=== PATIENT | male | born 1975 | race Hispanic/Latino ===

== ENCOUNTER 2022-04-05 22:44 | Inpatient (IN) | payer SELFPAY ==
[2022-04-05 23:31] LABS: Absolute Lymphocytes (CBC) 0.5 K/uL (0.7-4.9); Hematocrit 29.2 % (39.6-49.0); MCV 88.5 fL (80-100)
[2022-04-05] MEDS ORDERED: NA CHLORIDE 0.9% 1,000 ML ONE ×2 (23:31→23:52)
[2022-04-05] MEDS ORDERED: NA CHLORIDE 0.9% 250 ML ONE (23:31)
[2022-04-05] MEDS ORDERED: VANCOMYCIN 1 GM/VIAL ONE (23:31)
[2022-04-05 23:35] LABS: Protime INR 1.39
[2022-04-05 23:42] LABS: Albumin 2.2 g/dL (3.4-5.0); Bilirubin Total 4.7 mg/dL (0.2-1.0); Potassium 3.6 mmol/L (3.5-5.1); Protein, Total 7.9 g/dL (6.4-8.2)
[2022-04-05] MEDS ORDERED: THIAMINE 200 MG/2 ML INJ ONE (23:52)
[2022-04-05] MEDS ORDERED: MULTIVITAMINS 10 ML VIAL (INJ) IV ONE (23:52)
[2022-04-05] MEDS ORDERED: FOLIC ACID 5 MG/ML VIAL ONE (23:54)
[2022-04-06] MEDS ORDERED: IBUPROFEN 200 MG TAB PO ONE (00:06)
[2022-04-06] MEDS ORDERED: CEFEPIME 2 GM VIAL ONE (00:06)
[2022-04-06] MEDS ORDERED: IBUPROFEN 400 MG TAB ONE (00:06)
[2022-04-06] MEDS ORDERED: NA CHLORIDE 0.9% 100 ML ONE (00:06)
[2022-04-06 00:21] LABS: Blood Morphology Comment NOTED (NOT SEEN); Platelet Estimate DECR; Polychromasia SLIGHT
--- NOTE | 2022-04-06 00:23 | ER ---
Nurse's Notes [facility] Name: Conrad Blackwood Age: 46 yrs Sex: Male : 1975 Arrival Date: 04/05/2022 Time: 22:47 Bed 7 Private MD: Diagnosis: Severe sepsis without septic shock;Cellulitis of right lower limb;Altered mental status, unspecified Presentation: 04/05 23:06 Chief complaint: Brother states that he has been saying that he was "seeing demons" and kd3 that he had a fever last night of 100.7 and that he has been very weak, not eating well and acting very sick. The patient reports last drink about 4 weeks ago but the brother report patient drinking daily and is unsure of when his last drink was. The brother states that they decided to bring him to the hospital tonight because of some swelling in the right lower extremity that wasn't noticed by the family members or reported by the patient. Coronavirus screen: Vaccine status: Patient reports being unvaccinated. Ebola Screen: No symptoms or risks identified at this time. Initial Sepsis Screen: Does the patient meet any 2 criteria? RR > 20 per min. Temp <36.0*C (96.8*F)) or > 38.3*C (100.9*F). Does the patient have a suspected source of infection? Yes: Skin breakdown/wound If YES to both, name of provider notified: Bo Cisneros MD. Risk Assessment: Do you want to hurt yourself or someone else? Patient reports no desire to harm self or others. Onset of symptoms was April 05, 2022. 23:06 Method Of Arrival: Wheelchair kd3 23:06 Acuity: ALESSANDRO 3 kd3 Triage Assessment: 23:14 General: Appears ill, Behavior is cooperative. Pain: Denies pain. kd3 23:14 Pain: Complains of pain in right leg. Neuro: Level of Consciousness is awake, alert, kd3 obeys commands, confused, Oriented to person, situation. Respiratory: Airway is patent Trachea midline Respiratory effort is even, unlabored, Respiratory pattern is regular, symmetrical. Historical: - Allergies: 23:14 No Known Allergies; kd3 - Home Meds: 23:14 None [Active]; kd3 - Immunization history:: Adult Immunizations unknown, Client reports having NOT received the Covid vaccine. - Social history:: Smoking status: unknown. - Family history:: not pertinent. - Hospitalizations: : No recent hospitalization is reported. Screenin:16 Abuse screen: Denies threats or abuse. Denies injuries from another. Nutritional kd3 screening: No deficits noted. Tuberculosis screening: No symptoms or risk factors identified. Fall Risk IV access (20 points). Gait- Weak (10 pts.). Mental Status- Overestimates/Forgets Limitations (15 pts.). Assessment: 23:19 General: See triage . kd3 Vital Signs: 23:06 BP 120 / 73; Pulse 91; Resp 18; Temp 100.6; Pulse Ox 100% ; Pain 0/10; kd3 23:31 Weight 67.59 kg; Height 5 ft. 7 in. (170.18 cm); kd3 04/06 00:25 Pulse 82; kd3 01:29 Temp 98.4(O); kd3 01:30 BP 108 / 66; Pulse 80; Resp 19; Pulse Ox 100% on R/A; kd3 02:35 Pulse 83; Resp 19; Pulse Ox 100% on R/A; kd3 04/05 23:31 Body Mass Index 23.34 (67.59 kg, 170.18 cm) kd3 ED Course: 04/05 22:47 Patient arrived in ED. ja2 22:49 Nancy Mora, RN is Primary Nurse. kd3 22:54 Bo Cisneros MD is Attending Physician. rn 23:14 Triage completed. kd3 23:14 Arm band placed on right wrist. kd3 23:16 Patient has correct armband on for positive identification. kd3 23:16 No provider procedures requiring assistance completed. kd3 23:50 Extremity Venous Uni Ltd US In Process Unspecified. EDMS 23:52 XRAY Chest (1 view) In Process Unspecified. EDMS 04/06 00:21 Frandy Abreu MD is Hospitalizing Provider. rn 02:33 Patient admitted, IV remains in place. kd3 02:33 Inserted saline lock: 18 gauge in right antecubital area, using aseptic technique. kd3 Blood collected. Administered Medications: 04/05 23:30 Drug: vancoMYCIN 1 grams Route: IVPB; Infused Over: 2 hrs; Site: right antecubital; kd3 04/06 01:31 Follow up: Response: No adverse reaction; IV Status: Completed infusion kd3 04/05 23:30 Drug: NS 0.9% 1000 ml Route: IV; Rate: 1000 ml; Site: right antecubital; kd3 04/06 02:34 Follow up: IV Status: Infusion continued kd3 04/05 23:55 Drug: Banana Bag - (NS 0.9% 1000 ml, foLIC Acid 1 mg, Thiamine 100 mg, Multivitamin 1 kd3 amp) Route: IV; Rate: calculated rate; Site: right antecubital; 04/06 02:34 Follow up: IV Status: Infusion continued kd3 00:04 Drug: Cefepime 2 grams Route: IVPB; Rate: 200 ml/hr; Infused Over: 30 mins; Site: right kd3 antecubital; 00:23 Follow up: Response: No adverse reaction; IV Status: Completed infusion kd3 00:04 Drug: Motrin (ibuprofen) 600 mg Route: PO; kd3 02:34 Follow up: Response: Temperature is decreased kd3 Medication: 04/05 23:17 VIS not applicable for this client. kd3 Outcome: 04/06 00:22 Decision to Hospitalize by Provider. rn 02:33 Admitted to Med/surg room 404. kd3 02:33 Condition: stable 02:33 Condition: stable 02:33 Discharge instructions given to patient, family, Instructed on the need for admit, Demonstrated understanding of instructions, follow-up care. 02:35 Patient left the ED. kd3 Signatures: Dispatcher [employer] EDMS Bo Cisneros MD MD rn Alexander, Jessica ja2 Doucette, Kyli, RN RN kd3 Corrections: (The following items were deleted from the chart) 00:25 04/05 23:21 Pulse 26bpm; kd3 kd3
--- NOTE | 2022-04-06 00:23 | EDPHYS ---
Physician Documentation [facility] Name: Conrad Blackwood Age: 46 yrs Sex: Male : 1975 Arrival Date: 04/05/2022 Time: 22:47 Bed 7 Private MD: ED Physician Bo Cisneros HPI: 04/05 23:16 This 46 yrs old Male presents to ER via Wheelchair with complaints of AMS, Leg rn Swelling. 23:16 The patient presents with pain, swelling. The complaints affect the right leg. rn 23:16 Onset: The symptoms/episode began/occurred 1 week(s) ago. Modifying factors: The rn symptoms are alleviated by nothing. the symptoms are aggravated by nothing. Associated signs and symptoms: Pertinent positives: fever, rash, swelling, warmth, Pertinent negatives weakness. Severity of symptoms: At their worst the symptoms were moderate, in the emergency department the symptoms are unchanged. The patient has experienced a previous episode. The patient has not recently seen a physician. Pt reports RLE pain and swelling, fever, and "seeing things". Happening for 1 week. States has happened once before. Family reports daily drinker, patient states no ETOH for 1 month. . Historical: - Allergies: 23:14 No Known Allergies; kd3 - Home Meds: 23:14 None [Active]; kd3 - Immunization history:: Adult Immunizations unknown, Client reports having NOT received the Covid vaccine. - Social history:: Smoking status: unknown. - Family history:: not pertinent. - Hospitalizations: : No recent hospitalization is reported. 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 Exam: 23:19 Constitutional: Disheveled patient, cooperative, seems confused. Head/Face: rn Normocephalic, atraumatic. Eyes: + mild scleral icterus. ENT: very dry MM Cardiovascular: Regular rate and rhythm. No pulse deficits. Respiratory: No increased work of breathing, no retractions or nasal flaring. Abdomen/GI: Soft, non-tender Skin: Warm, dry, + RLE with swelling and weeping from right distal thigh down to foot. + palpable pulse Right foot. No cyanosis. MS/ Extremity: Pulses equal, no cyanosis. Neuro: Awake and alert, GCS 15, oriented only to person, not place or time. Vital Signs: 23:06 BP 120 / 73; Pulse 91; Resp 18; Temp 100.6; Pulse Ox 100% ; Pain 0/10; kd3 23:31 Weight 67.59 kg; Height 5 ft. 7 in. (170.18 cm); kd3 04/06 00:25 Pulse 82; kd3 01:29 Temp 98.4(O); kd3 01:30 BP 108 / 66; Pulse 80; Resp 19; Pulse Ox 100% on R/A; kd3 02:35 Pulse 83; Resp 19; Pulse Ox 100% on R/A; kd3 04/05 23:31 Body Mass Index 23.34 (67.59 kg, 170.18 cm) kd3 MDM: 04/05 22:54 Patient medically screened. rn 04/06 00:18 Differential diagnosis: cellulitis, DVT, sepsis, sever sepsis, ETOH withdrawal. Data rn reviewed: vital signs, nurses notes, lab test result(s), radiologic studies, ultrasound, and as a result, I will admit patient. Counseling: I had a detailed discussion with the patient and/or guardian regarding: the historical points, exam findings, and any diagnostic results supporting the discharge/admit diagnosis, lab results, radiology results, the need for further work-up and treatment in the hospital. Response to treatment: the patient's symptoms have mildly improved after treatment, and as a result, I will admit patient. Admission orders: after a detailed discussion of the patient's condition and case, the admit orders are written by me. ED course: Pt slowly improving. Meets criteria for severe sepsis. (A) source is RLE cellulitis. (B) SIRS criteria HR> 90, and Acute AMS. (C) organ dysfunction is elevated bilirubin. Lactate 1.9, no need for repeat. No evidence of shock. Admitted to hospitalist service. Given absence of shock and normal lactic acid, does not require sepsis bolus. Sepsis reevaluation complete. . 04/05 23:01 Order name: Blood Culture Adult (2) rn 04/05 23:01 Order name: CBC with Diff; Complete Time: 00:23 rn 08 23:01 Order name: CMP; Complete Time: 23:44 rn 04/05 23:01 Order name: Lactate; Complete Time: 23:44 rn 04/05 23:01 Order name: Protime (+inr); Complete Time: 23:44 rn 04/05 23:01 Order name: Ptt, Activated; Complete Time: 23:44 rn 04/05 23:01 Order name: Urine Culture rn 04/05 23:01 Order name: Urine Microscopic Only rn 04/05 23:01 Order name: Extremity Venous Uni Ltd US rn 04/05 23:01 Order name: SARS-COV-2 RT PCR (Document "Date of Onset" if Symptomatic) rn 04/05 23:02 Order name: AMMONIA; Complete Time: 00:07 rn 04/05 23:17 Order name: Glucose, Ancillary Testing; Complete Time: 23:34 EDMS 08 23:19 Order name: ETOH Level; Complete Time: 00:07 rn 04/05 23:40 Order name: Manual Differential; Complete Time: 00:23 EDMS 04/05 23:01 Order name: Accucheck; Complete Time: 23:13 rn 08 23:01 Order name: Cardiac monitoring; Complete Time: 23:13 rn 04/05 23:01 Order name: EKG - Nurse/Tech; Complete Time: 23:13 rn 04/05 23:01 Order name: IV Saline Lock - Large Bore; Complete Time: 23:13 rn 04/05 23:01 Order name: Labs collected and sent; Complete Time: 23:13 rn 04/05 23:01 Order name: O2 Per Protocol; Complete Time: 23:14 rn 04/05 23:01 Order name: O2 Sat Monitoring; Complete Time: 23:14 rn 04/05 23:38 Order name: XRAY Chest (1 view) rn Administered Medications: 04/05 23:30 Drug: vancoMYCIN 1 grams Route: IVPB; Infused Over: 2 hrs; Site: right antecubital; kd3 04/06 01:31 Follow up: Response: No adverse reaction; IV Status: Completed infusion kd3 04/05 23:30 Drug: NS 0.9% 1000 ml Route: IV; Rate: 1000 ml; Site: right antecubital; kd3 04/06 02:34 Follow up: IV Status: Infusion continued kd3 04/05 23:55 Drug: Banana Bag - (NS 0.9% 1000 ml, foLIC Acid 1 mg, Thiamine 100 mg, Multivitamin 1 kd3 amp) Route: IV; Rate: calculated rate; Site: right antecubital; 04/06 02:34 Follow up: IV Status: Infusion continued kd3 00:04 Drug: Cefepime 2 grams Route: IVPB; Rate: 200 ml/hr; Infused Over: 30 mins; Site: right kd3 antecubital; 00:23 Follow up: Response: No adverse reaction; IV Status: Completed infusion kd3 00:04 Drug: Motrin (ibuprofen) 600 mg Route: PO; kd3 02:34 Follow up: Response: Temperature is decreased kd3 Disposition Summary: 04/06/22 00:22 Hospitalization Ordered Hospitalization Status: Inpatient Admission rn Provider: Frandy Abreu rn Location: Telemetry/MedSurg (Inpatient) rn Condition: Stable rn Problem: new rn Symptoms: have improved rn Bed/Room Type: Standard rn Room Assignment: 405(04/06/22 01:20) cg Diagnosis - Severe sepsis without septic shock rn - Cellulitis of right lower limb rn - Altered mental status, unspecified rn Forms: - Medication Reconciliation Form rn - SBAR form rn Signatures: Dispatcher [employer] EDMS Bo Cisneros MD MD rn Garcia, Cindy, RN RN cg Doucette, Kyli, RN RN kd3 Verona Hernandez PA PA sb3 Corrections: (The following items were deleted from the chart) 00:51 00:18 ED course: Pt slowly improving. Meets criteria for severe sepsis. (A) source is rn RLE cellulitis. (B) SIRS criteria HR> 90, and Acute AMS. (C) organ dysfunction is elevated bilirubin. Lactate 1.9, no need for repeat. No evidence of shock. Admitted to hospitalist service. . rn 01:20 00:22 rn cg
--- NOTE | 2022-04-06 01:29 | P.HP ---
Certification for Inpatient Patient admitted to: Inpatient With expected LOS: >2 Midnights Patient will require the following post-hospital care: None Practitioner: I am a practitioner with admitting privileges, knowledge of patient current condition, hospital course, and medical plan of care. Services: Services provided to patient in accordance with Admission requirements found in Title 42 Section 412.3 of the Code of Federal Regulations Patient History Date of Service: 04/06/22 Reason for admission: Alcohol Withdrawal, Cellulitus, Sepsis History of Present Illness: Patient is a 46 y/o male who presented to the ED with complaints of RLE pain/swelling and hallucinations. Patient is accompanied by his brother and sister who report that he is an alcoholic. They believe his last drink was about 2 days ago. They state they were helping him change today when they noticed his right leg was extremely red, swollen, and leaking fluid. They also report he is experiencing visual and audible hallucinations along with paranoia. Patient states that his legs have been swollen before, but they resolve on their own. He has not had any medical care in quite a few years now. Labs are significant for hgb 9.9, platelets 49, PT 15.4, INR 1.39, Na 126, Cl 93, tbili 5.7, alk phos 129, albumin 2.2. Basline labs are unknown. Scleral icterus and mild jaundice n oted on exam. Patient is lethargic but responds appropriately to questions. Venous doppler US negative for DVT. He was given vanc, cefepime, and banana bag in the ED. Brother states that patient drinks beer daily, but is not sure how much. They also do not think he is eating adequately. States patient does not have any chronic medical problems. He is admitted for further evaluation and treatment. Home medications list reviewed: Yes (None) - Past Medical/Surgical History Diabetic: No -: Alcoholism Past Surgical History: Patient denies surgical history Psychosocial/ Personal History: Patient lives at home with a roommate. He has a brother and sister who help him. - Family History Father -: Hypertension - Social History Smoking Status: Never smoker Alcohol use: Yes CD- Drugs: No Caffeine use: Yes Place of Residence: Home Review of Systems General: Weakness Musculoskeletal: Other (R leg swelling, redness, pain) Physical Examination - Physical Exam General: Alert, In no apparent distress, Other (Sleepy but arousable) HEENT: Atraumatic, PERRLA, EOMI, Scleral icterus Neck: Supple, 2+ carotid pulse no bruit, No LAD, Without JVD or thyroid abnormality Respiratory: Clear to auscultation bilaterally, Normal air movement Cardiovascular: Regular rate/rhythm, Normal S1 S2 Gastrointestinal: Normal bowel sounds, Soft and benign, Non-distended, No tenderness Integumentary: Tenderness/swelling, Erythema, Warmth, Other (Right knee and below- erythematous, edematous, weeping, warm. Neurovascularly intact.) Neurological: Normal strength at 5/5 x4 extr, Sensation intact, Abnormal affect - Studies Laboratory Data (last 24 hrs) 04/05/22 23:00: PT 15.4 H, INR 1.39, APTT 26.0 04/05/22 23:00: Sodium 126 L, Potassium 3.6, BUN 21 H, Creatinine 1.00, Glucose 111 H, Total Bilirubin 4.7 H, AST 177 H, ALT 69, Alkaline Phosphatase 129 H 04/05/22 23:00: WBC 7.8, Hgb 9.9 L, Hct 29.2 L, Plt Count 41 L* Assessment and Plan - Problems (Diagnosis) (1) Alcohol withdrawal Current Visit: Yes Status: Acute Qualifiers: Complication of substance-induced condition: with perceptual disturbance Qualified Code(s): F10.932 - Alcohol use, unspecified with withdrawal with perceptual disturbance (2) Acute hepatic failure Current Visit: Yes Status: Acute Qualifiers: Hepatic coma status: without hepatic coma Qualified Code(s): K72.00 - Acute and subacute hepatic failure without coma (3) Cellulitis of right lower extremity Current Visit: Yes Status: Acute (4) Sepsis Current Visit: Yes Status: Acute Qualifiers: Sepsis type: sepsis due to unspecified organism Sepsis acute organ dysfunction status: with acute organ dysfunction Severe sepsis acute organ dysfunction type: acute liver failure Hepatic coma status: without hepatic coma Severe sepsis shock status: without septic shock Qualified Code(s): A41.9 - Sepsis, unspecified organism; R65.20 - Severe sepsis without septic shoc k; K72.00 - Acute and subacute hepatic failure without coma (5) Hyponatremia Current Visit: Yes Status: Acute (6) Thrombocytopenia Current Visit: Yes Status: Acute (7) Anemia Current Visit: Yes Status: Acute Qualifiers: Anemia type: unspecified type Qualified Code(s): D64.9 - Anemia, unspecified (8) Hypoalbuminemia due to protein-calorie malnutrition Current Visit: Yes Status: Acute - Plan Alcohol Withdrawal: DT protocol in place. Per family, last drink was about 48 hours ago but unsure. Patient states his last drink was 4 weeks ago. He is lethargic and experiencing paranoia along with visual/audible hallucinations. Precautions in place. Folic acid, thiamine, MV daily. Cellulitus RLE/Severe Sepsis: Family reports that patient did fall a few days ago and could have caused initial injury to leg, but are unsure. It seems that they aren't telling the whole story. Continue vancomycin and cefepime. Blood cultures obtained. VSS. No white count. Bandemia present. Lactic acid WNL. Liver failure is likely chronic, but we have no baseline to compare to. Hepatic Failure: AST and alk phos elevated. Tbili 4.7. Scleral icterus and mild jaundice present. Secondary to chronic alcohol abuse. CT chest/abd/pelvis and hepatic function panel ordered to investigate further. Thrombocytopenia/Anemia: Iron studies, folate, B12 ordered. Likely secondary to alcohol abuse. Monitor CBC daily. Hyponatremia: Family states patient drinks beer daily, cannot quantify. Hyponatremia likely due to beer potomania. Continue NS and monitor CMP. SCDs for VTE ppx Full Code Discharge Plan: Home Plan to discharge in: Greater than 2 days - Advance Directives Does patient have a Living Will: No Does patient have a Durable POA for Healthcare: No - Code Status/Comfort Care Code Status Assessed: Yes (Full) Critical Care: No Time Spent Managing Pts Care (In Minutes): 50
[2022-04-06] MEDS ORDERED: FLUMAZENIL 0.1 MG/ML (5 mL VIAL) IV PRN (02:46)
[2022-04-06] MEDS ORDERED: VANCOMYCIN 1 GM in NA CHLORIDE 0.9% 250 ML IVPB SCH (02:46)
[2022-04-06] MEDS: NA CHLORIDE 0.9% 1,000 ML IV SCH ×3 (02:46→21:46)
[2022-04-06] MEDS ORDERED: LORAZEPAM 1 MG TABLET PO PRN (02:46)
[2022-04-06] MEDS ORDERED: ONDANSETRON 4 MG/2 ML VIAL IV PRN (02:46)
[2022-04-06] MEDS: LORAZEPAM 1 MG TABLET PO SCH ×2 (03:09→06:32)
[2022-04-06 03:31] VITALS: BMI 27.0
[2022-04-06] MEDS ORDERED: VANCOMYCIN 1 GM/VIAL ONE (04:41)
[2022-04-06] MEDS ORDERED: NA CHLORIDE 0.9% 250 ML ONE (04:41)
[2022-04-06] MEDS ORDERED: VANCOMYCIN 0.75 GM in NA CHLORIDE 0.9% 150 ML IVPB ONE (05:00)
[2022-04-06 07:10] LABS: ALT/SGPT 50 U/L (12-78); AST/SGOT 126 U/L (15-37); Albumin 1.6 g/dL (3.4-5.0); Alkaline Phosphatase 95 U/L (45-117); Bilirubin Direct 2.8 mg/dL (0-0.2); Bilirubin Total 3.7 mg/dL (0.2-1.0); Folic Acid, (Folate) > 20.0 ng/mL (3.1-17.5); Magnesium 2.1 mg/dL (1.8-2.4); Phosphorus 2.2 mg/dL (2.5-4.9); Protein, Total 5.9 g/dL (6.4-8.2); Transferrin 129 mg/dL (200-360)
--- NOTE | 2022-04-06 07:53 | EKG ---
Test Date: 2022-04-05 Test Time: 23:10:42 Unit Secy: THANIA MEASUREMENT RESULTS: Intervals: Rate: 91 NH: 146 QRSD: 92 QT: 398 QTc: 489 [place]: P: 65 NH: 146 QRS: 43 T: 29 INTERPRETIVE STATEMENTS: Normal sinus rhythm Prolonged QT Abnormal ECG No previous ECG available for comparison Electronically Signed On 04-06-22 07:52:24 CDT by Sergio Alcantar
[2022-04-06] MEDS ORDERED: LORAZEPAM 1 MG TABLET PO SCH (08:00)
[2022-04-06] MEDS ORDERED: ALBUMIN HUMAN 25% 100 ML IV ONE (08:59)
[2022-04-06] MEDS: MULTIVITAMIN TAB PO SCH (09:00)
[2022-04-06] MEDS: THIAMINE HCL 100 MG TABLET PO SCH (09:00)
[2022-04-06] MEDS ORDERED: CEFEPIME 1 GM in NA CHLORIDE 0.9% 100 ML IV SCH (09:00)
[2022-04-06] MEDS: FOLIC ACID 1 MG TABLET PO SCH (09:00)
[2022-04-06] MEDS ORDERED: NA CHLORIDE 0.9% 250 ML IV ONE (09:02)
[2022-04-06] MEDS: chlordiazePOXIDE HCl 5 MG CAP PO SCH ×3 (09:10→21:06)
[2022-04-06] MEDS: CEFEPIME 2 GM in NA CHLORIDE 0.9% 100 ML IV SCH ×2 (09:34→21:07)
[2022-04-06] MEDS ORDERED: chlordiazePOXIDE HCl 25 MG CAP PO ONE (10:30)
[2022-04-06] MEDS: VANCOMYCIN 1.25 GM in NA CHLORIDE 0.9% 250 ML IVPB SCH (11:46)
--- NOTE | 2022-04-06 12:28 | RAD REPORT ---
EXAM DESCRIPTION: CT - Chest Abdomen Pelvis W Cont - 04/06/2022 5:24 am CLINICAL HISTORY: AMS, liver failure TECHNIQUE: Axial computed tomography images of the chest, abdomen and pelvis with intravenous contra st. Sagittal and coronal reformatted images were created and reviewed. This CT exam was performed using one or more of the following dose reduction techniques: automated exposure control, adjustme nt of the mA and/or kV according to patient size, and/or use of iterative reconstruction technique. COMPARISON: No relevant prior studies available. FINDINGS: CHEST: Lungs: Minimal bibasilar subsegmental atelectasis/pleural parenchymal scar. Pleural space: Unremarkable. No significant effusion. No pneumothorax. Heart: No cardiomegaly. Coronary artery calcification. No significant pericardial effusion. ABDOMEN: Liver: Diffuse surface contour nodularity of the liver. Gallbladder and bile ducts: Unremarkable. No calcified stones. No ductal dilation. Pancreas: Unremarkable. No ductal dilation. No mass. Spleen: The spleen is mildly enlarged measuring 15.8 cm in craniocaudal dimension. Adrenals: Unremarkable. No mass. Kidneys and ureters: Unremarkable. No hydronephrosis. No solid mass. Stomach and bowel: Unremarkable. No obstruction. No mucosal thickening. PELVIS: Appendix: Normal caliber appendix. No findings to suggest acute appendicitis. Bladder: Unremarkable. No mass. Reproductive: Unremarkable as visualized. CHEST, ABDOMEN and PELVIS: Intraperitoneal space: Trace ascites. No free air. Bones/joints: Multilevel spondylosis. No acute fracture. No dislocation. Soft tissues: Bilateral gynecomastia. Small to moderate periumbilical hernia containing simple fl uid. Small fat-containing right inguinal hernia. Moderate subcutaneous soft tissue edema at the l evel of the proximal right thigh with extension deep to the superficial fascia. Vasculature: Minimal atherosclerotic disease. Paraesophageal varices. Upper abdominal varices. The main portal, splenic and superior mesenteric veins are patent. No aortic aneurysm. Lymph nodes: Mildly enlarged right inguinal lymph nodes with normal fatty annie measuring up to 16 m m in short axis. IMPRESSION: 1. No acute findings in the chest. 2. Findings compatible with hepatic cirrhosis and sequela of portal hypertension. The main portal, splenic and superior mesenteric veins are patent. 3. Right thigh superficial soft tissue edema which can be seen in the setting of superficial soft t issue infection, venous stasis and lymphedema. 4. Other findings as above. Electronically signed by: Laura Harrison MD 04/06/2022 3:10 AM CDT Due to temporary technical issues with the PACS/Fluency reporting system, reports are being signed by the in house radiologists without review as a courtesy to insure prompt reporting. The interpreting radiologist is fully responsible for the content of the report.
--- NOTE | 2022-04-06 12:32 | RAD REPORT ---
EXAM DESCRIPTION: RAD - Chest Single View - 04/05/2022 11:50 pm CLINICAL HISTORY: The patient is 46 years old and is Male; FEVER TECHNIQUE: Frontal view of the chest. COMPARISON: No relevant prior studies available. FINDINGS: Lungs: Unremarkable. No consolidation. Pleural space: Unremarkable. No pneumothorax. Heart: Unremarkable. Mediastinum: Unremarkable. Bones/joints: Unremarkable. IMPRESSION: No acute findings in the chest. Electronically signed by: Geovanny Jaquez MD 04/06/2022 12:11 AM CDT Due to temporary technical issues with the PACS/Fluency reporting system, reports are being signed by the in house radiologists without review as a courtesy to insure prompt reporting. The interpreting radiologist is fully responsible for the content of the report.
--- NOTE | 2022-04-06 12:36 | RAD REPORT ---
EXAM DESCRIPTION: US - Extremity Venous Uni Ltd - 04/06/2022 12:24 am CLINICAL HISTORY: The patient is 46 years old and is Male; Pain Extremity Venous Uni Ltd TECHNIQUE: Real-time duplex ultrasound scan of the right lower extremity veins integrating B-mode tw o-dimensional vascular structure, Doppler spectral analysis, color flow Doppler imaging and compressi on. COMPARISON: No relevant prior studies available. FINDINGS: Deep veins: Unremarkable. No DVT in the visualized common femoral, femoral, or poplite al veins. The veins demonstrate normal color flow, are normally compressible where visualized, with normal phasic flow and/or augmentation response. Soft tissues: Soft tissue edema. IMPRESSION: No evidence of DVT in the right lower extremity veins. Electronically signed by: Geovanny Jaquez MD 04/06/2022 12:15 AM CDT Due to temporary technical issues with the PACS/Fluency reporting system, reports are being signed by the in house radiologists without review as a courtesy to insure prompt reporting. The interpreting radiologist is fully responsible for the content of the report.
[2022-04-06] MEDS ORDERED: VANCOMYCIN 1.25 GM in NA CHLORIDE 0.9% 250 ML IVPB SCH (17:00)
[2022-04-07] MEDS: VANCOMYCIN 1.25 GM in NA CHLORIDE 0.9% 250 ML IVPB SCH ×2 (00:59→12:00)
--- NOTE | 2022-04-07 01:48 | P.PN ---
Subjective Date of Service: 04/07/22 Subjective: Improving blood pressure low; and started on IV albumin. Review of Systems is unable to be obtained Physical Examination - Vital Signs Temperature: 98.1 F Blood Pressure: 119/64 Pulse: 88 Respirations: 14 Pulse Ox (%): 100 - Physical Exam General: Confused Respiratory: Clear to auscultation bilaterally, Normal air movement Cardiovascular: Regular rate/rhythm, Normal S1 S2 Gastrointestinal: Normal bowel sounds, No tenderness Musculoskeletal: No clubbing, No swelling, No tenderness Neurological: Sensation intact, Cranial nerves 3-12 intact - Studies Medications List Reviewed: Yes Assessment & Plan - Problems (Diagnosis) (1) Alcohol withdrawal Status: Acute Qualifiers: Complication of substance-induced condition: with perceptual disturbance Q ualified Code(s): F10.932 - Alcohol use, unspecified with withdrawal with perceptual disturbance (2) Hypoalbuminemia due to protein-calorie malnutrition Status: Acute (3) Sepsis Status: Acute Qualifiers: Sepsis type: sepsis due to unspecified organism Sepsis acute organ dysfunction status: with acute organ dysfunction Severe sepsis acute organ dysfunction type: acute liver failure Hepatic coma status: without hepatic coma Severe sepsis shock status: without septic shock Qualified Code(s): A41.9 - Sepsis, unspecified organism; R65.20 - Severe sepsis without septic shock; K72.00 - Acute and subacute hepatic failure without coma - Plan 1. Continue with IV antibiotic 2. Continue with local wound care 3. GI consultation 4. Gentle IV hydration; also will give IV albumin 5. Monitor CBC 6. Strict blood sugar monitoring 7. Pain control 8. GI and DVT prophylaxis Discharge Plan: Home Plan to discharge in: Greater than 2 days - Advance Directives Does patient have a Living Will: No Does patient have a Durable POA for Healthcare: No
[2022-04-07 06:05] LABS: Absolute Lymphocytes (CBC) 0.6 K/uL (0.7-4.9); Hematocrit 24.7 % (39.6-49.0); Lymphocytes % 9.7 % (15.3-44.8); MCV 91.3 fL (80-100); MPV 9.5 fL (7.6-11.3); RBC Red Blood Cell Count 2.71 M/uL (4.33-5.43)
[2022-04-07 06:27] LABS: Albumin 1.5 g/dL (3.4-5.0); Bilirubin Total 2.9 mg/dL (0.2-1.0); Magnesium 2.3 mg/dL (1.8-2.4); Phosphorus 1.6 mg/dL (2.5-4.9); Potassium 3.5 mmol/L (3.5-5.1); Protein, Total 5.9 g/dL (6.4-8.2)
[2022-04-07 08:06] LABS: Blood Morphology Comment NOTED (NOT SEEN); Platelet Estimate DECR
[2022-04-07 08:07] LABS: Anisocytosis 1+; Hypochromasia 1+
[2022-04-07 08:08] LABS: Polychromasia SLIGHT
[2022-04-07] MEDS ORDERED: POTASSIUM CL SA 10 MEQ TAB PO ONE (09:00)
[2022-04-07] MEDS ORDERED: ALBUMIN HUMAN 25% 50 ML IV ONE (09:31)
[2022-04-07] MEDS: CEFEPIME 2 GM in NA CHLORIDE 0.9% 100 ML IV SCH ×2 (09:34→20:29)
[2022-04-07] MEDS: THIAMINE HCL 100 MG TABLET PO SCH (09:34)
[2022-04-07] MEDS: FOLIC ACID 1 MG TABLET PO SCH (09:34)
[2022-04-07] MEDS: MULTIVITAMIN TAB PO SCH (09:34)
[2022-04-07] MEDS: chlordiazePOXIDE HCl 5 MG CAP PO SCH ×3 (09:35→20:29)
[2022-04-07] MEDS: NA CHLORIDE 0.9% 1,000 ML IV SCH ×2 (09:38→18:46)
[2022-04-07] MEDS ORDERED: POTASSIUM PHOS 44 MEQ in NA CHLORIDE 0.9% 500 ML IV ONE (11:00)
[2022-04-07] MEDS: VANCOMYCIN 1.5 GM in NA CHLORIDE 0.9% 500 ML IVPB SCH (13:13)
[2022-04-07] MEDS ORDERED: ACETAMINOPHEN 325 MG TABLET PO ONE (17:00)
[2022-04-08] MEDS: VANCOMYCIN 1.5 GM in NA CHLORIDE 0.9% 500 ML IVPB SCH ×2 (00:14→13:35)
[2022-04-08 03:58] LABS: Absolute Lymphocytes (CBC) 0.9 K/uL (0.7-4.9); Hematocrit 23.9 % (39.6-49.0); Lymphocytes % 15.1 % (15.3-44.8); MCV 91.8 fL (80-100); MPV 9.2 fL (7.6-11.3)
[2022-04-08 04:25] LABS: Albumin 1.6 g/dL (3.4-5.0); Bilirubin Total 2.6 mg/dL (0.2-1.0); Magnesium 2.2 mg/dL (1.8-2.4); Phosphorus 1.4 mg/dL (2.5-4.9); Potassium 3.4 mmol/L (3.5-5.1); Protein, Total 6.1 g/dL (6.4-8.2)
[2022-04-08] MEDS ORDERED: LORAZEPAM 1 MG TABLET PO SCH ×2 (05:00→06:00)
[2022-04-08] MEDS: CEFEPIME 2 GM in NA CHLORIDE 0.9% 100 ML IV SCH ×2 (08:15→20:54)
[2022-04-08] MEDS: NA CHLORIDE 0.9% 1,000 ML IV SCH ×2 (08:15→14:46)
[2022-04-08] MEDS: FOLIC ACID 1 MG TABLET PO SCH (08:16)
[2022-04-08] MEDS: THIAMINE HCL 100 MG TABLET PO SCH (08:16)
[2022-04-08] MEDS: MULTIVITAMIN TAB PO SCH (08:16)
[2022-04-08] MEDS ORDERED: POTASSIUM 25 MEQ EFFERV TAB PO ONE (09:00)
[2022-04-08] MEDS: chlordiazePOXIDE HCl 5 MG CAP PO SCH ×3 (09:41→20:54)
[2022-04-08] MEDS ORDERED: CALCIUM GLUCONATE 1 GM IVPB 1 GM/50 ML BAG IV ONE (10:20)
[2022-04-08] MEDS ORDERED: POTASSIUM PHOS 30 MM in NA CHLORIDE 0.9% 500 ML IV ONE (10:20)
--- NOTE | 2022-04-08 13:27 | P.DS ---
Discharge Date: 04/09/22 Disposition: ROUTINE DISCHARGE Discharge Condition: GOOD Reason for Admission: Alcohol Withdrawal, Cellulitus, Sepsis - Problems (1) Alcohol withdrawal Status: Acute Qualifiers: Complication of substance-induced condition: with perceptual disturbance Qualified Code(s): F10.932 - Alcohol use, unspecified with withdrawal with perceptual disturbance (2) Hypoalbuminemia due to protein-calorie malnutrition Status: Acute (3) Sepsis Status: Acute Qualifiers: Sepsis type: sepsis due to unspecified organism Sepsis acute organ dysfunction status: with acute organ dysfunction Severe sepsis acute organ dysfunction type: acute liver failure Hepatic coma status: without hepatic coma Severe sepsis shock status: without septic shock Qualified Code(s): A41.9 - Sepsis, unspecified organism; R65.20 - Severe sepsis without septic shock; K72.00 - Acute and subacute hepatic failure without coma Brief History of Present Illness: Patient is a 46 y/o male who presented to the ED with complaints of RLE pain/swelling and hallucinations. Patient is accompanied by his brother and si ster who report that he is an alcoholic. They believe his last drink was about 2 days ago. They state they were helping him change today when they noticed his right leg was extremely red, swollen, and leaking fluid. They also report he is experiencing visual and audible hallucinations along with paranoia. Patient states that his legs have been swollen before, but they resolve on their own. He has not had any medical care in quite a few years now. Labs are significant for hgb 9.9, platelets 49, PT 15.4, INR 1.39, Na 126, Cl 93, tbili 5.7, alk phos 129, albumin 2.2. Basline labs are unknown. Scleral icterus and mild jaundice noted on exam. Patient is lethargic but responds appropriately to questions. Venous doppler US negative for DVT. He was given vanc, cefepime, and banana bag in the ED. Brother states that patient drinks beer daily, but is not sure how much. They also do not think he is eating adequately. States patient does not have any chronic medical problems. He is admitted for further evaluation and treatment. Hospital Course: Patient was given antibiotics and Librium. Patient is clinically doing much better. Patient's clinical symptoms are better. At this time, patient is stable for discharge with outpatient follow-up. Vital Signs/Physical Exam: Temp Pulse Resp BP Pulse Ox 98.1 F 89 18 96/63 100 04/08/22 11:57 04/08/22 11:57 04/08/22 11:57 04/08/22 11:57 04/08/22 11:57 General: Alert, In no apparent distress, Oriented x3 Laboratory Data at Discharge: WBC 5.6 K/uL (4.3-10.9) 04/08/22 03:34 Hgb 8.2 g/dL (13.6-17.9) L 04/08/22 03:34 Hct 23.9 % (39.6-49.0) L 04/08/22 03:34 Plt Count 46 K/uL (152-406) L* D 04/08/22 03:34 PT 15.4 SECONDS (9.5-12.5) H 04/05/22 23:00 INR 1.39 04/05/22 23:00 APTT 26.0 SECONDS (24.3-36.9) 04/05/22 23:00 Sodium 133 mmol/L (136-145) L 04/08/22 03:34 Potassium 3.4 mmol/L (3.5-5.1) L 04/08/22 03:34 BUN 11 mg/dL (7-18) 04/08/22 03:34 Creatinine 0.50 mg/dL (0.55-1.3) L 04/08/22 03:34 Glucose 88 mg/dL (74-106) 04/08/22 03:34 Phosphorus 1.4 mg/dL (2.5-4.9) L 04/08/22 03:34 Magnesium 2.2 mg/dL (1.8-2.4) 04/08/22 03:34 Total Bilirubin 2.6 mg/dL (0.2-1.0) H 04/08/22 03:34 AST 133 U/L (15-37) H 04/08/22 03:34 ALT 57 U/L (12-78) 04/08/22 03:34 Alkaline Phosphatase 167 U/L (45-117) H D 04/08/22 03:34 Triglycerides 129 mg/dL (<150) 04/07/22 05:43 Cholesterol 65 mg/dL (<200) 04/07/22 05:43 HDL Cholesterol 7 mg/dL (40-60) L 04/07/22 05:43 Cholesterol/HDL Ratio 9.29 04/07/22 05:43 Home Medications: Ciprofloxacin HCl 500 mg PO Q12H #30 04/09/22 Furosemide [Lasix] 20 mg PO BIDL #60 tab 04/09/22 Lactulose 30 ml PO DAILY #1000 ml 04/09/22 Sodium Hypochlorite [Dakin's] 100 ml MC DAILY #1000 04/09/22 Spironolactone [Aldactone] 25 mg PO DAILY #30 tab 04/09/22 chlordiazePOXIDE HCl [Chlordiazepoxide HCl] 10 mg PO TID #60 04/09/22 metroNIDAZOLE [Flagyl] 500 mg PO Q8H #20 04/09/22 New Medications: Spironolactone [Aldactone] 25 mg PO DAILY #30 tab chlordiazePOXIDE HCl [Chlordiazepoxide HCl] 10 mg PO TID #60 Ciprofloxacin HCl 500 mg PO Q12H #30 Sodium Hypochlorite [Dakin's] 100 ml MC DAILY #1000 metroNIDAZOLE [Flagyl] 500 mg PO Q8H #20 Lactulose 30 ml PO DAILY #1000 ml Furosemide [Lasix] 20 mg PO BIDL #60 tab Physician Discharge Instructions: -DC IV and DC home -Follow-up with PCP in 1 to 2 weeks -Follow-up with gastroenterology or hepatology in 1 to 2 weeks -Please give patient number to wound healing center to help with right lower extremity wound -Gently wash right lower extremity with Dakin's solution once a day -Please call Dr. Abreu at [phone] if any questions regarding hospital stay -Please call nursing station at [phone] if any nursing or medication questions -Return to the emergency room if symptoms worsen Followup: NONE,NONE [Primary Care Provider] - 1-2 Weeks ([facility] to schedule an appointment) Time spent managing pt's care (in minutes): 35
[2022-04-08 21:21] VITALS: O2SAT 98
[2022-04-09] MEDS: NA CHLORIDE 0.9% 1,000 ML IV SCH (02:19)
[2022-04-09 05:46] LABS: Hematocrit 23.6 % (39.6-49.0); RBC Red Blood Cell Count 2.51 M/uL (4.33-5.43)
[2022-04-09 05:47] LABS: Absolute Lymphocytes (CBC) 0.7 K/uL (0.7-4.9); MCV 94.1 fL (80-100); MPV 9.1 fL (7.6-11.3)
[2022-04-09 06:38] LABS: Albumin 1.4 g/dL (3.4-5.0); Bilirubin Total 1.8 mg/dL (0.2-1.0); Magnesium 2.1 mg/dL (1.8-2.4); Phosphorus 1.4 mg/dL (2.5-4.9); Protein, Total 5.7 g/dL (6.4-8.2)
[2022-04-09] MEDS ORDERED: NA CHLORIDE 0.9% 100 ML ONE (07:22)
[2022-04-09] MEDS ORDERED: CEFEPIME 2 GM VIAL ONE (07:31)
[2022-04-09] MEDS: CEFEPIME 2 GM in NA CHLORIDE 0.9% 100 ML IV SCH (07:37)
[2022-04-09] MEDS: MULTIVITAMIN TAB PO SCH (07:38)
[2022-04-09] MEDS: FOLIC ACID 1 MG TABLET PO SCH (07:38)
[2022-04-09] MEDS: THIAMINE HCL 100 MG TABLET PO SCH (07:38)
[2022-04-09] MEDS: chlordiazePOXIDE HCl 5 MG CAP PO SCH (09:41)
[2022-04-17 03:31] VITALS: BP 119/64; TEMP 98.1
--- NOTE | 2022-04-17 03:33 | P.PN ---
Date of Service: 04/08/22 Subjective Subjective: Improving; Patient's blood pressure has improved. Patient clinically doing better. Anticipate discharge over the next 24-48 hours. Review of Systems is unable to be obtained Physical Examination - Vital Signs Reviewed - Physical Exam General: Confused Respiratory: Clear to auscultation bilaterally, Normal air movement Cardiovascular: Regular rate/rhythm, Normal S1 S2 Gastrointestinal: Normal bowel sounds, No tenderness Musculoskeletal: No clubbing, No swelling, No tenderness Neurological: Sensation intact, Cranial nerves 3-12 intact - Studies Medications List Reviewed: Yes Assessment & Plan - Problems (Diagnosis) (1) Alcohol withdrawal Status: Acute Qualifiers: Complication of substance-induced condition: with perceptual disturbance Qualified Code(s): F10.932 - Alcohol use, unspecified with withdrawal with perceptual disturbance (2) Hypoalbuminemia due to protein-calorie malnutrition Status: Acute (3) Sepsis Status: Acute Qualifiers: Sepsis type: sepsis due to unspecified organism Sepsis acute organ dysfunction status: with acute organ dysfunction Severe sepsis acute organ dysfunction type: acute liver failure Hepatic coma status: without hepatic coma Severe sepsis shock status: without septic shock Qualified Code(s): A41.9 - Sepsis, unspecified organism; R65.20 - Severe sepsis without septic shock; K72.00 - Acute and subacute hepatic failure without coma - Plan Continue plan of care as mentioned below: 1. Continue with IV antibiotic 2. Continue with local wound care 3. GI consultation outpt 4. Heplock IV 5. Monitor CBC 6. Strict blood sugar monitoring 7. Pain control 8. GI and DVT prophylaxis Discharge Plan: Home Plan to discharge in: Greater than 2 days - Advance Directives Does patient have a Living Will: No Does patient have a Durable POA for Healthcare: No
== END 2022-04-09 10:50 | disposition home or self-care (01) | DRG 871 ==
LOC: ER 22:44 → ERHOLD 04-06 01:20 → 4TH 04-06 02:04
PROVIDERS: ADMIT Hospitalist; ATTEND Hospitalist
DX: A41.9 Sepsis, unspecified organism (principal); K72.00 Acute and subacute hepatic failure without coma; L03.115 Cellulitis of right lower limb; E46 Unspecified protein-calorie malnutrition; F10.932 Alcohol use, unspecified with withdrawal with perceptual disturbance; E87.1 Hypo-osmolality and hyponatremia; R65.20 Severe sepsis without septic shock; E88.09 Other disorders of plasma-protein metabolism, not elsewhere classified; Z68.23 Body mass index [BMI] 23.0-23.9, adult; D69.6 Thrombocytopenia, unspecified; D64.9 Anemia, unspecified; Z20.822 Contact with and (suspected) exposure to COVID-19
CPT/HCPCS: 36415; 71045; 71260; 74177; 80053; 80061; 80076; 80202; 80320; 82140; 82607; 82746; 82947; 83540; 83605; 83735; 84100; 84132; 84466; 85025; 85610; 85730; 87040; 87070; 87077; 87186; 87205; 93005; 93971; 96365; 96367; 97116; 97161; 97530; 99285; J0610; J0692; J3370; J3411; J7030; J7040; J7050; P9047; Q9967; U0003